=== PATIENT | male | born 1960 | race Caucasian/White ===

== ENCOUNTER 2023-04-07 18:26 | Inpatient (IN) | payer BC ==
[2023-04-07] MEDS ORDERED: Sodium Chloride 0.9% 100 ML ONE (18:55)
[2023-04-07] MEDS ORDERED: Piperacillin/Tazobactam 4.5 GM VIAL ONE (18:55)
[2023-04-07 19:11] LABS: ALT (SGPT) 22 U/L (8-55); AST (SGOT) 17 U/L (5-34); Albumin 4.4 g/dL (3.4-4.8); Alkaline Phosphatase 58 U/L (40-110); Anion Gap 14 mmol/L (10-20); BUN (Urea Nitrogen) 14 mg/dL (8.4-25.7); Bilirubin, Total 2.5 mg/dL (0.2-1.2); Calc. Creatinine Clearance 0 mL/min (70-130); Calcium 9.3 mg/dL (7.8-10.44); Carbon Dioxide 19 mmol/L (23-31); Chloride 104 mmol/L (98-107); Estimated GFR 82; Glucose 124 mg/dL (80-115); Potassium 3.9 mmol/L (3.5-5.1); Protein, Total 7.4 g/dL (5.8-8.1); Sodium 133 mmol/L (136-145)
[2023-04-07] MEDS ORDERED: Vancomycin (BATCH) 1.75 GM in Premix 1 BAG IVPB SCH (19:30)
[2023-04-07 19:56] LABS: #Monocytes 1.1 thou/uL (0.11-0.59); #Neutrophils 8.8 thou/uL (1.40-6.50); %Basophils 0.3 % (0.0-1.0); %Lymphocytes 9.3 % (21.0-51.0); %Monocytes 9.6 % (0.0-10.0); %Neutrophils 80.3 % (42.0-75.0); Hematocrit 48.3 % (42.0-52.0); Hemoglobin 16.8 g/dL (14.0-18.0); Mean Corpuscular HGB CONC 34.8 g/dL (32.0-36.0); Mean Corpuscular Hemoglobin 32.8 pg (27.0-31.0); Mean Corpuscular Volume 94.3 fl (78.0-98.0); Mean Platelet Volume 10.5 fL (7.4-10.4); Platelet Count 143 10x3/uL (130-400); RBC Distribution Width 12.5 % (11.5-14.5); Red Blood Cell (RBC) Count 5.12 mill/uL (4.70-6.10)
[2023-04-07] MEDS ORDERED: Acetaminophen 500 MG TAB ONE (21:04)
[2023-04-07 21:24] LABS: Bacteria/HPF None Seen HPF (None Seen); Bilirubin Negative (Negative); Blood, Urine 3+ (Negative); CAUTI Indications for Culture Fever or rigors; Glucose, Urine (Dipstick) 50 mg/dL (Negative); Ketone, Urine 40 mg/dL (Negative); Leukocyte 250 Leu/uL (Negative); Nitrite Negative (Negative); Protein, Urine (Dipstick) 70 mg/dL (Neg-Trace); RBC/HPF Greater than 50 HPF (0-3); Specific Gravity, Urine 1.028 (1.002-1.036); Squamous Epithelial None Seen HPF (0-3); Urobilinogen Normal mg/dL (Less than 2); WBC/HPF Greater than 50 HPF (0-3)
[2023-04-07 21:25] LABS: Clarity Cloudy (Clear)
[2023-04-07 21:27] LABS: Urine Culture Reflex Yes Yes
[2023-04-07] MEDS ORDERED: diphenhydrAMINE 50 MG/ML VIAL ONE (21:38)
[2023-04-07] MEDS ORDERED: methylPREDNISolone Sod Succ/PF 125 MG/2 ML VIAL ONE (21:48)
[2023-04-07] MEDS ORDERED: Ketorolac Tromethamine 30 MG (1 mL) VIAL ONE (21:49)
[2023-04-07] MEDS ORDERED: LORazepam 2 MG/ML SYR.(CARPUJECT) ONE (21:49)
[2023-04-07] MEDS ORDERED: Senokot S 8.6-50 MG TAB PO PRN (23:41)
[2023-04-07] MEDS ORDERED: Ondansetron ODT 4 MG TAB PO PRN (23:41)
[2023-04-07] MEDS ORDERED: Acetaminophen 325 MG TAB PO PRN (23:41)
[2023-04-07] MEDS ORDERED: Lactated Ringer's 1,000 ML IV SCH (23:45)
[2023-04-08 00:50] VITALS: BMI 27.6
[2023-04-08 05:17] LABS: #Monocytes 0.6 thou/uL (0.11-0.59); #Neutrophils 8.9 thou/uL (1.40-6.50); %Basophils 0.1 % (0.0-1.0); %Lymphocytes 3.1 % (21.0-51.0); %Monocytes 6.3 % (0.0-10.0); %Neutrophils 89.4 % (42.0-75.0); Hemoglobin 14.9 g/dL (14.0-18.0); Mean Corpuscular HGB CONC 34.7 g/dL (32.0-36.0); Mean Corpuscular Hemoglobin 33.1 pg (27.0-31.0); Mean Corpuscular Volume 95.6 fl (78.0-98.0); Platelet Count 96 10x3/uL (130-400); RBC Distribution Width 12.7 % (11.5-14.5)
[2023-04-08 05:43] LABS: Anion Gap 12 mmol/L (10-20); BUN (Urea Nitrogen) 17 mg/dL (8.4-25.7); Calc. Creatinine Clearance 78 mL/min (70-130); Calcium 8.7 mg/dL (7.8-10.44); Carbon Dioxide 23 mmol/L (23-31); Chloride 106 mmol/L (98-107); Estimated GFR 66; Glucose 181 mg/dL (80-115); Potassium 4.3 mmol/L (3.5-5.1); Sodium 137 mmol/L (136-145)
[2023-04-08] MEDS ORDERED: Cefepime 1 GM VIAL ONE (08:49)
[2023-04-08] MEDS ORDERED: Sodium Chloride 0.9% 100 ML ONE (08:49)
[2023-04-08] MEDS ORDERED: Famotidine 20 MG TAB ONE (08:49)
[2023-04-08] MEDS: Vancomycin (BATCH) 1.25 GM in Premix 1 BAG IVPB SCH ×2 (08:56→20:18)
[2023-04-08] MEDS: Famotidine 20 MG TAB PO SCH ×2 (08:56→20:12)
[2023-04-08] MEDS: Cefepime 1 GM in Sodium Chloride 0.9% 100 ML IVPB SCH ×2 (09:20→20:11)
[2023-04-09 08:46] LABS: Vancomycin, Trough 8.5 ug/mL
[2023-04-09 09:11] LABS: #Monocytes 0.8 thou/uL (0.11-0.59); %Basophils 0.1 % (0.0-1.0); %Lymphocytes 10.6 % (21.0-51.0); %Monocytes 7.9 % (0.0-10.0); %Neutrophils 80.7 % (42.0-75.0); Hematocrit 40.2 % (42.0-52.0); Hemoglobin 14.2 g/dL (14.0-18.0); Mean Corpuscular HGB CONC 35.3 g/dL (32.0-36.0); Mean Corpuscular Hemoglobin 33.3 pg (27.0-31.0); Mean Corpuscular Volume 94.4 fl (78.0-98.0); Mean Platelet Volume 10.7 fL (7.4-10.4); Platelet Count 123 10x3/uL (130-400); RBC Distribution Width 12.6 % (11.5-14.5); Red Blood Cell (RBC) Count 4.26 mill/uL (4.70-6.10)
[2023-04-09 09:28] LABS: ALT (SGPT) 17 U/L (8-55); AST (SGOT) 16 U/L (5-34); Albumin 3.3 g/dL (3.4-4.8); Alkaline Phosphatase 44 U/L (40-110); Anion Gap 13 mmol/L (10-20); BUN (Urea Nitrogen) 20 mg/dL (8.4-25.7); Bilirubin, Total 0.8 mg/dL (0.2-1.2); CRP (Inflammatory) 11.46 mg/dL (= or < 0.5); Calc. Creatinine Clearance 113 mL/min (70-130); Calcium 8.6 mg/dL (7.8-10.44); Carbon Dioxide 23 mmol/L (23-31); Chloride 107 mmol/L (98-107); Estimated GFR 98; Globulin 2.5 g/dL (2.4-3.5); Glucose 128 mg/dL (80-115); Potassium 3.9 mmol/L (3.5-5.1); Protein, Total 5.8 g/dL (5.8-8.1); Sodium 139 mmol/L (136-145)
[2023-04-09] MEDS: Cefepime 1 GM in Sodium Chloride 0.9% 100 ML IVPB SCH (09:39)
[2023-04-09] MEDS: Famotidine 20 MG TAB PO SCH ×2 (09:40→20:40)
[2023-04-09] MEDS ORDERED: Meropenem 1 GM in Sodium Chloride 0.9% 100 ML IVPB SCH ×3 (10:45→11:30)
[2023-04-09] MEDS ORDERED: Vancomycin (BATCH) 1.5 GM in Premix 1 BAG IVPB SCH (11:00)
[2023-04-09] MEDS: Vancomycin (BATCH) 1.25 GM in Premix 1 BAG IVPB SCH (11:14)
[2023-04-09] MEDS: Lactated Ringer's 1,000 ML IV SCH (11:53)
[2023-04-09] MEDS: Meropenem 1 GM in Sodium Chloride 0.9% 100 ML IVPB SCH (20:40)
[2023-04-09] MEDS ORDERED: Atorvastatin Calcium 40 MG TAB PO SCH (21:00)
[2023-04-09] MEDS ORDERED: Tamsulosin HCl 0.4 MG CAP PO SCH (21:00)
[2023-04-10] MEDS: Lactated Ringer's 1,000 ML IV SCH (05:06)
[2023-04-10] MEDS: Meropenem 1 GM in Sodium Chloride 0.9% 100 ML IVPB SCH ×2 (05:06→13:51)
[2023-04-10] MEDS: Famotidine 20 MG TAB PO SCH (08:48)
[2023-04-10 17:36] VITALS: BP 145/87; TEMP 97.4
== END 2023-04-10 17:40 | disposition home or self-care (01) | DRG 872 ==
LOC: ERS 18:26 → ERHOLD 23:43 → 2SW 04-08 13:14 → OBSVTOIN 04-09 19:30
PROVIDERS: ADMIT Student in an Organized Health Care Education/Training Program; ATTEND Internal Medicine
DX: A41.9 Sepsis, unspecified organism (principal); E87.1 Hypo-osmolality and hyponatremia; E87.20 Acidosis, unspecified; E78.5 Hyperlipidemia, unspecified; F10.90 Alcohol use, unspecified, uncomplicated; R97.20 Elevated prostate specific antigen [PSA]; N40.1 Benign prostatic hyperplasia with lower urinary tract symptoms; R31.9 Hematuria, unspecified; D69.6 Thrombocytopenia, unspecified; Z88.5 Allergy status to narcotic agent; Z79.82 Long term (current) use of aspirin; Z79.899 Other long term (current) drug therapy; Z90.89 Acquired absence of other organs; Z98.890 Other specified postprocedural states
CPT/HCPCS: 36415; 36416; 71045; 80048; 80053; 80202; 81001; 83605; 85025; 86140; 87040; 87086; 93005; 96365; 96366; 96367; 96375; 96376; G0378; J0692; J1200; J1885; J2060; J2185; J2543; J2930; J3370; J3490; J7120

== ENCOUNTER 2023-05-26 09:02 | Outpatient (CLI) | payer BC | END 2023-05-26 09:03 | disposition home or self-care (01) | LOC: NM 09:02 | PROVIDERS: ATTEND Urology | DX: C61 Malignant neoplasm of prostate (principal) | CPT/HCPCS: 78306; A9503 ==